=== PATIENT | female | born 1980 | race Caucasian/White ===

== ENCOUNTER 2020-04-19 18:54 | Emergency (ER) | payer MEDICAID, OTHER ==
[~2020-04-19] VITALS: Ht 162.6 cm; Wt 65.0 kg
[~2020-04-19 18:54] MED LIST: LITHIUM; PROZAC; RESPIRIDAL; SEROQUEL
[2020-04-19] MEDS ORDERED: BENZTROPINE MESYLATE 0.5MG TABLET PO ONE (19:30)
[2020-04-19] MEDS ORDERED: RISPERIDONE 0.5MG TABLET PO SCH (19:30)
[2020-04-19] MEDS ORDERED: HALOPERIDOL 5MG TABLET PO ONE (19:30)
[2020-04-19 20:57] LABS: BASOPHILS % 0.5 % (0.0-2.0); EOSINOPHILS % 1.4 % (0.0-5.0); HEMATOCRIT. 35.4 % (36.0-48.0); HEMOGLOBIN. 11.1 g/dL (12.0-16.0); LYMPHOCYTES % 15.6 % (20.0-50.0); MEAN CORPUSCULAR VOLUME 76.5 fL (81.0-99.0); MEAN PLATELET VOLUME 10.3 fl (7.4-10.4); MONOCYTES % 9.4 % (2.0-8.0); NEUTROPHILS % 73.1 % (40.0-76.0); PLATELET 203 x1000/uL (130-400); RED BLOOD CELL COUNT 4.63 mill/uL (4.2-5.4); RED CELL DISTRIBUTION WIDTH 16.5 % (11.6-14.6)
[2020-04-19 21:07] LABS: CHLORIDE 108 mEq/L (98-107)
[2020-04-19 21:14] LABS: ETHANOL BLOOD < 10 mg/dL
[2020-04-19] MEDS ORDERED: LOPERAMIDE HCL 2MG CAPSULE PO ONE (21:45)
[2020-04-19] MEDS ORDERED: TRAZODONE HCL 50MG TABLET PO SCH (23:00)
[2020-04-20] MEDS ORDERED: LORAZEPAM 1MG TABLET PO ONE (00:45)
[2020-04-20 09:07] VITALS: BP 117/66
== END 2020-04-20 09:11 | disposition home or self-care (01) ==
LOC: ER 18:54
DX: F29 Unspecified psychosis not due to a substance or known physiological condition (principal); Z88.5 Allergy status to narcotic agent
CPT/HCPCS: 36415; 80053; 80320; 81025; 85025; 99285; J1630; G0480

== ENCOUNTER 2020-07-24 07:57 | Emergency (ER) | payer SELFPAY ==
[~2020-07-24] VITALS: Ht 162.6 cm; Wt 98.0 kg
[2020-07-24] MEDS ORDERED: FLUCONAZOLE 100MG TABLET PO ONE (08:30)
[2020-07-24] MEDS ORDERED: DOXYCYCLINE HYCLATE 100MG CAPSULE PO ONE (08:30)
[2020-07-24] MEDS ORDERED: KETOROLAC 60MG/2ML VIAL IM ONE (08:30)
[2020-07-24] MEDS ORDERED: LORAZEPAM 0.5MG TABLET PO ONE (08:30)
[2020-07-24] MEDS ORDERED: DIF15 MT (08:52)
[2020-07-24] MEDS ORDERED: DOXY150T15 MT ×2 (08:53→08:56)
[2020-07-24] MEDS ORDERED: FLUCONAZOLE 150MG TABLET PO ONE (09:00)
[2020-07-24 09:01] VITALS: BP 142/84
== END 2020-07-24 09:30 | disposition home or self-care (01) ==
LOC: ER 08:10
DX: L03.811 Cellulitis of head [any part, except face] (principal); L03.221 Cellulitis of neck; B36.9 Superficial mycosis, unspecified; F15.10 Other stimulant abuse, uncomplicated
CPT/HCPCS: 81025; 96372; 99283; J1885; Z7610

== ENCOUNTER 2020-08-03 05:33 | Emergency (ER) | payer SELFPAY ==
[~2020-08-03] VITALS: Ht 157.5 cm; Wt 89.0 kg
[~2020-08-03 05:33] MED LIST changes: +DIF15 MT; +DOXY150T15 MT
[2020-08-03 05:36] VITALS: BP 146/74
[2020-08-03] MEDS ORDERED: DOXYCYCLINE HYCLATE 100MG CAPSULE PO ONE (06:15)
== END 2020-08-03 07:27 | disposition left against medical advice (07) ==
LOC: ER 05:33
DX: L03.211 Cellulitis of face (principal); F15.10 Other stimulant abuse, uncomplicated; Z86.59 Personal history of other mental and behavioral disorders
CPT/HCPCS: 99283